=== PATIENT | male | born 1965 ===

== ENCOUNTER 2025-07-26 11:50 | Outpatient (CLI) | payer OTHER, SELFPAY ==
--- NOTE | 2025-07-26 08:15 | DI.RAD_ITS ---
Exam(s) XR KNEE RT 4V AP,LAT,FELICITAS,PAT EXAM: XR KNEE RT 4V AP,LAT,FELICITAS,PAT CLINICAL HISTORY: RIGHT KNEE PAIN. TECHNIQUE: 2D digital imaging was performed. Three views. COMPARISON: No exams were available for comparison FINDINGS: BONES: No acute fracture is present. No bony destructive lesion is seen. JOINTS: There is severe narrowing of the medial femoral tibial joint space, with a [id number] appearance. There is periarticular spurring and multiple subchondral cysts. This causes varus angulation at the knee. There is a joint effusion. There is the density seen in the suprapatellar region likely loose body. Also from likely loose bodies the posterior joint. There is spurring at the patellofemoral joint. SOFT TISSUE: Normal. IMPRESSION: Severe degenerative changes of the medial femoral tibial joint. Joint space loose bodies. DATA REPOSITORY: RADIATION DOSE DELIVERED:
== END 2025-07-26 11:51 | disposition home or self-care (01) ==
LOC: DIORS 11:50
PROVIDERS: Visit Provider Student in an Organized Health Care Education/Training Program
DX: M25.561 Pain in right knee (principal)
CPT/HCPCS: 73564